=== PATIENT | male | born 1950 | race Caucasian/White ===

== ENCOUNTER 2018-01-02 20:22 | Emergency (ER) | payer OTHER ==
[2018-01-02] MEDS ORDERED: DERMABOND SKIN ADHESIVE TOP ONE (21:19)
--- NOTE | 2018-01-02 21:23 | RAD REPORT ---
EXAM DESCRIPTION: CT - CTHCSPWOC - 01/02/2018 9:02 pm CLINICAL HISTORY: Trauma, head and neck injury. SMASH INJURY COMPARISON: No comparisons TECHNIQUE: Axial 5 mm thick images of the head were obtained. Axial 2 mm thick images of the cervical spine were obtained with sagittal and coronal reconstruction images generated and reviewed. All CT scans are performed using dose optimization technique as appropriate and may include automated exposure control or mA/KV adjustment according to patient size. FINDINGS: CT HEAD WITHOUT CONTRAST: No acute hemorrhage, hydrocephalus or extra-axial collection is identified.Moderate brain atrophy.No areas of brain edema or midline shift. Mild polypoid mucosal thickening is seen in both maxillary antra.The calvarium is intact. CT CERVICAL SPINE WITHOUT CONTRAST: No fracture or subluxation.Mild lower cervical degenerative changes.No prevertebral soft tissues swel ling is identified. IMPRESSION: No acute intracranial or cervical spine findings.
--- NOTE | 2018-01-02 22:01 | EDPHYS ---
Physician Documentation [facility] Name: Laith Tinajero Age: 67 yrs Sex: Male : 1950 Arrival Date: 01/02/2018 Time: 20:23 Bed 16 Private MD: Fernando Lucas T ED Physician Valente Torres HPI: 01/02 20:57 This 67 yrs old Male presents to ER via Ambulatory with complaints of Fall snw Injury. 20:57 Details of fall: The patient fell from an upright position, while walking. Onset: The snw symptoms/episode began/occurred suddenly, just prior to arrival. Associated injuries: The patient sustained injury to the head, laceration, 2.5 cm(s), of the left side of forehead. Severity of symptoms: At their worst the symptoms were moderate. The patient has experienced a previous episode. The patient has not recently seen a physician. pt and family state this happens on occasion with his medications. Historical: - Allergies: 20:37 TETRACYCLINES; tl3 - Home Meds: 20:37 gabapentin 100 mg oral cap 3 caps 3 times per day [Active]; tramadol 50 mg Oral tab tl3 [Active]; aspirin 325 mg Oral tab 1 tab once daily [Active]; diazepam 5 mg oral tab 0.5 tab for Muscle Spasm [Active]; - PMHx: 20:37 Fibromyalgia; tl3 - Immunization history:: Adult Immunizations up to date, Last tetanus immunization: < 5 years ago. - Social history:: Smoking status: Patient/guardian denies using tobacco, never smoked. - Ebola Screening: : No symptoms or risks identified at this time. ROS: 20:57 Constitutional: Negative for fever, chills, and weight loss, Eyes: Negative for injury, snw pain, redness, and discharge, ENT: Negative for injury, pain, and discharge, Neck: Negative for injury, pain, and swelling, Cardiovascular: Negative for chest pain, palpitations, and edema, Respiratory: Negative for shortness of breath, cough, wheezing, and pleuritic chest pain, Abdomen/GI: Negative for abdominal pain, nausea, vomiting, diarrhea, and constipation, Back: Negative for injury and pain, : Negative for injury, bleeding, discharge, and swelling, MS/Extremity: Negative for injury and deformity, Skin: Negative for injury, rash, and discoloration. 20:57 Neuro: Positive for dizziness, fall, struck front of head on table . Exam: 20:51 Constitutional: This is a well developed, well nourished patient who is awake, alert, snw and in no acute distress. Head/Face: Normocephalic, atraumatic. 20:51 Constitutional: This is a well developed, well nourished patient who is awake, alert, and in no acute distress. + ETOH Head/Face: Normocephalic, traumatic, star like laceration above left eyebrow, superficial skin avulsion to bridge of nose ENT: Nares patent. No nasal discharge, no septal abnormalities noted. Tympanic membranes are normal and external auditory canals are clear. Oropharynx with no redness, swelling, or masses, exudates, or evidence of obstruction, uvula midline. Mucous membranes moist. Neck: Trachea midline, no thyromegaly or masses palpated, and no cervical lymphadenopathy. Supple, full range of motion without nuchal rigidity, or vertebral point tenderness. No Meningismus. Chest/axilla: Normal chest wall appearance and motion. Nontender with no deformity. No lesions are appreciated. Cardiovascular: Regular rate and rhythm with a normal S1 and S2. No gallops, murmurs, or rubs. Normal PMI, no JVD. No pulse deficits. Respiratory: Lungs have equal breath sounds bilaterally, clear to auscultation and percussion. No rales, rhonchi or wheezes noted. No increased work of breathing, no retractions or nasal flaring. Abdomen/GI: Soft, non-tender, with normal bowel sounds. No distension or tympany. No guarding or rebound. No evidence of tenderness throughout. Back: No spinal tenderness. No costovertebral tenderness. Full range of motion. MS/ Extremity: Pulses equal, no cyanosis. Neurovascular intact. Full, normal range of motion. 20:51 Eyes: Pupils: equal, right pupil is approximately 5 mm(s), left pupil is approximately 5 mm(s), Extraocular movements: no acute changes, Conjunctiva: normal, Corneas: are normal. 20:51 Neuro: Orientation: is normal, appropriate for stated age, Mentation: is normal, Cerebellar function: normal finger to nose testing, seizure activity, is not displayed by the patient, mildly slurred speech, pt and spouse state this happens on occasion when he takes gabapentin. Vital Signs: 20:37 BP 112 / 65; Pulse 88; Resp 18; Temp 97.6; Pulse Ox 99% ; Weight 88.45 kg; Height 5 ft. tl3 11 in. (180.34 cm); 21:45 BP 121 / 72; Pulse 72; Resp 18 S; Pulse Ox 96% on R/A; cc3 22:00 BP 126 / 74; Pulse 88; Resp 18 S; Pulse Ox 96% on R/A; cc3 20:37 Body Mass Index 27.20 (88.45 kg, 180.34 cm) tl3 NIH Stroke Scale Scores: 20:51 NIHSS Score: 1 snw Laceration: 22:00 Wound Repair of subcutaneous laceration to left side of forehead. Distal snw neuro/vascular/tendon intact. Skin closed with thin layer Adhesive skin closure using Dermabond. Skin closed with thin layer Adhesive skin closure using simple sutures and sterile technique. MDM: 20:43 Patient medically screened. snw 21:58 Data reviewed: vital signs, nurses notes. Data interpreted: Pulse oximetry: on room air snw is 99 %. Interpretation: normal. Counseling: I had a detailed discussion with the patient and/or guardian regarding: the historical points, exam findings, and any diagnostic results supporting the discharge/admit diagnosis, radiology results, the need for outpatient follow up, to return to the emergency department if symptoms worsen or persist or if there are any questions or concerns that arise at home. Special discussion: Based on the patient's history, exam and DX evaluation, there is no indication for emergent intervention or inpatient TX. It is understood by the patient/guardian that if the SXs persist or worsen they need to return immediately for re-evaluation. Based on the history and exam findings, there is no indication for further emergent testing or inpatient evaluation. I discussed with the patient/guardian the need to see the primary care provider for further evaluation of the symptoms. 01/02 20:49 Order name: CT Head C Spine; Complete Time: 21:29 snw 01/02 20:49 Order name: Wound Care; Complete Time: 21:36 snw 01/02 20:49 Order name: Dermabond; Complete Time: 21:36 snw Administered Medications: No medications were administered Disposition: 01/03 06:07 Co-signature as Attending Physician, Valente Brian MD I agree with the assessment and terrence plan of care. Disposition: 01/02/18 21:59 Discharged to Home. Impression: Fall on same level, unspecified, Unspecified injury of head, Laceration without foreign body of unspecified part of head. - Condition is Stable. - Discharge Instructions: Tissue Adhesive Wound Care, Head Injury, Adult, Facial Laceration. - Work release form, Medication Reconciliation Form, Thank You Letter, Antibiotic Education, Prescription Opioid Use form. - Follow up: Fernando Lucas MD; When: 2 - 3 days; Reason: Recheck today's complaints, Continuance of care, Re-evaluation by your physician. Follow up: Emergency Department; When: As needed; Reason: Worsening of condition. NIH Stroke Scale - NIH Stroke Score Date: 01/02/2018 Time: 20:51 Total Score = 1 1a. Level of Consciousness (LOC) - 0(Alert) 1b. Level of Consciousness (LOC) (Year \T\ Age) - 0(Both) 1c. LOC Commands (Open \T\ Closes Eyes/Catastrophe Claims Supervisor) - 0(Both) 2. Best Gaze (Lateral Gaze Paresis) - 0(Normal) 3. Visual Field Loss - 0(No visual loss) 4. Facial Palsy - 0(Normal) 5a. Left Arm: Motor (10-second hold) - 0(No drift) 5b. Right Arm: Motor (10-second hold) - 0(No drift) 6a. Left Leg: Motor (5-second hold - always test supine) - 0(No drift) 6b. Right Leg: Motor (5-second hold - always test supine) - 0(No drift) 7. Limb Ataxia (finger/nose \T\ heel/rodriguez - test with eyes open) - 0(Absent) 8. Sensory Loss (pinprick arms/legs/face) - 0(Normal) 9. Best Language: Aphasia (description/naming/reading) - 0(No aphasia) 10. Dysarthria (speech clarity - read or repeat words) - 1(Mild to Moderate) 11. Extinction and Inattention (visual/tactile/auditory/spatial/personal) - 0(No abnormality) Initials: snw Signatures: Dispatcher [employer] Valente Vila MD MD cha Therrien, Shelly, CLOUD SYSTEMS ADMINISTRATOR-C CLOUD SYSTEMS ADMINISTRATOR-Csnw [place], RN RN tl3 Jazmine White cc3 Corrections: (The following items were deleted from the chart) 01/02 20:59 20:51 Constitutional: This is a well developed, well nourished patient who is snw awake, alert, and in no acute distress. Head/Face: Normocephalic, atraumatic. snw 20:59 20:51 Head/Face: Normocephalic, traumatic, star like laceration above left snw eyebrow, superficial skin avulsion to bridge of nose ENT: Nares patent. No nasal discharge, no septal abnormalities noted. Tympanic membranes are normal and external auditory canals are clear. Oropharynx with no redness, swelling, or masses, exudates, or evidence of obstruction, uvula midline. Mucous membranes moist. Neck: Trachea midline, no thyromegaly or masses palpated, and no cervical lymphadenopathy. Supple, full range of motion without nuchal rigidity, or vertebral point tenderness. No Meningismus. Chest/axilla: Normal chest wall appearance and motion. Nontender with no deformity. No lesions are appreciated. Cardiovascular: Regular rate and rhythm with a normal S1 and S2. No gallops, murmurs, or rubs. Normal PMI, no JVD. No pulse deficits. Respiratory: Lungs have equal breath sounds bilaterally, clear to auscultation and percussion. No rales, rhonchi or wheezes noted. No increased work of breathing, no retractions or nasal flaring. Abdomen/GI: Soft, non-tender, with normal bowel sounds. No distension or tympany. No guarding or rebound. No evidence of tenderness throughout. Back: No spinal tenderness. No costovertebral tenderness. Full range of motion. MS/ Extremity: Pulses equal, no cyanosis. Neurovascular intact. Full, normal range of motion. snw 22:14 21:59 01/02/2018 21:59 Discharged to Home. Impression: Fall on same level, cc3 unspecified; Unspecified injury of head; Laceration without foreign body of unspecified part of head. Condition is Stable. Forms are Medication Reconciliation Form, Thank You Letter, Antibiotic Education, Prescription Opioid Use. Follow up: Fernando Lucas; When: 2 - 3 days; Reason: Recheck today's complaints, Continuance of care, Re-evaluation by your physician. Follow up: Emergency Department; When: As needed; Reason: Worsening of condition. snw
--- NOTE | 2018-01-02 22:01 | ER ---
Nurse's Notes [facility] Name: Laith Tinajero Age: 67 yrs Sex: Male : 1950 Arrival Date: 01/02/2018 Time: 20:23 Bed 16 Private MD: Fernando Lucas T Diagnosis: Fall on same level, unspecified;Unspecified injury of head;Laceration without foreign body of unspecified part of head Presentation: 01/02 20:33 Presenting complaint: Patient states: pt fell at [employer], hitting left forehead on tl3 a table, laceration to forhead. Transition of care: patient was not received from another setting of care. Onset of symptoms was January 02, 2018 at 20:34. Risk Assessment: Do you want to hurt yourself or someone else? Patient reports no desire to harm self or others. Initial Sepsis Screen: Does the patient meet any 2 criteria? No. Patient's initial sepsis screen is negative. Does the patient have a suspected source of infection? No. Patient's initial sepsis screen is negative. Care prior to arrival: None. 20:33 Method Of Arrival: Ambulatory tl3 20:33 Acuity: MANAN 3 tl3 Triage Assessment: 20:37 General: Appears uncomfortable, Behavior is calm, cooperative, appropriate for age, tl3 Smells of alcohol. Pain: Complains of pain in left side of forehead Pain currently is 2 out of 10 on a pain scale. Historical: - Allergies: 20:37 TETRACYCLINES; tl3 - Home Meds: 20:37 gabapentin 100 mg oral cap 3 caps 3 times per day [Active]; tramadol 50 mg Oral tab tl3 [Active]; aspirin 325 mg Oral tab 1 tab once daily [Active]; diazepam 5 mg oral tab 0.5 tab for Muscle Spasm [Active]; - PMHx: 20:37 Fibromyalgia; tl3 - Immunization history:: Adult Immunizations up to date, Last tetanus immunization: < 5 years ago. - Social history:: Smoking status: Patient/guardian denies using tobacco, never smoked. - Ebola Screening: : No symptoms or risks identified at this time. Screenin:45 Abuse screen: Denies threats or abuse. Denies injuries from another. Nutritional cc3 screening: No deficits noted. Tuberculosis screening: No symptoms or risk factors identified. Fall Risk Ambulatory Aid- None/Bed Rest/Nurse Assist (0 pts). Gait- Weak (10 pts.). Mental Status- Oriented to own ability (0 pts). Assessment: 20:45 General: Appears in no apparent distress. uncomfortable, Behavior is calm, cooperative, cc3 appropriate for age. Pain: Complains of pain in left side of forehead. Neuro: Level of Consciousness is awake, alert, obeys commands, Oriented to person, place, time, situation, Appropriate for age. Cardiovascular: Denies chest pain. Respiratory: Airway is patent Respiratory effort is even, unlabored, Respiratory pattern is regular, symmetrical. GI: Abdomen is round non-distended. : No signs and/or symptoms were reported regarding the genitourinary system. EENT: No signs and/or symptoms were reported regarding the EENT system. Derm: Wound noted left side of forehead Wound is lacerated wound sustained from fall. Musculoskeletal: Circulation, motion, and sensation intact. Range of motion: intact in all extremities. Injury Description: Laceration sustained to left side of forehead is jagged, superficial, bleeding moderately, a small amount of bleeding noted at this time. A dressing was applied. 21:36 Reassessment: Patient appears in no apparent distress at this time. Patient and/or cc3 family updated on plan of care and expected duration. Pain level reassessed. Patient is alert, oriented x 3, equal unlabored respirations, skin warm/dry/pink. Wound cleaning, dermabond application and dressing done. 22:10 Reassessment: Patient appears in no apparent distress at this time. Patient and/or cc3 family updated on plan of care and expected duration. Pain level reassessed. Patient is alert, oriented x 3, equal unlabored respirations, skin warm/dry/pink. MARE Light discharged home the patient, no prescription given. No IV cannula in situ. Patient left ER vitally stable by wheelchair with his . Vital Signs: 20:37 BP 112 / 65; Pulse 88; Resp 18; Temp 97.6; Pulse Ox 99% ; Weight 88.45 kg; Height 5 ft. tl3 11 in. (180.34 cm); 21:45 BP 121 / 72; Pulse 72; Resp 18 S; Pulse Ox 96% on R/A; cc3 22:00 BP 126 / 74; Pulse 88; Resp 18 S; Pulse Ox 96% on R/A; cc3 20:37 Body Mass Index 27.20 (88.45 kg, 180.34 cm) tl3 NIH Stroke Scale Scores: 20:51 NIHSS Score: 1 snw ED Course: 20:23 Patient arrived in ED. am2 20:23 Fernando Lucas MD is Private Physician. am2 20:34 Triage completed. tl3 20:37 Arm band placed on right wrist. tl3 20:43 Nade[facility] Bergman [facility]-C [facility]. snw 20:43 Valente Torres MD is Attending Physician. snw 20:45 Patient has correct armband on for positive identification. Bed in low position. Call cc3 light in reach. Side rails up X 1. Pulse ox on. NIBP on. 20:[address] via wheelchair. vm2 21:00 CT completed. Patient tolerated procedure well. Patient moved back from CT. nj 21:02 CT Head C Spine In Process Unspecified. EDMS 21:05 Jazmine White is Primary Nurse. cc3 21:58 Fernando Lucas MD is Referral Physician. snw 22:10 No provider procedures requiring assistance completed. Patient did not have IV access cc3 during this emergency room visit. Administered Medications: No medications were administered Outcome: 21:59 Discharge ordered by . snw 22:10 Discharged to home via wheelchair, with family. cc3 22:10 Condition: stable 22:10 Discharge instructions given to patient, family, Instructed on discharge instructions, follow up and referral plans. Demonstrated understanding of instructions, follow-up care. 22:14 Patient left the ED. cc3 NIH Stroke Scale - NIH Stroke Score Date: 01/02/2018 Time: 20:51 Total Score = 1 1a. Level of Consciousness (LOC) - 0(Alert) 1b. Level of Consciousness (LOC) (Year \T\ Age) - 0(Both) 1c. LOC Commands (Open \T\ Closes Eyes/New Car Inspector) - 0(Both) 2. Best Gaze (Lateral Gaze Paresis) - 0(Normal) 3. Visual Field Loss - 0(No visual loss) 4. Facial Palsy - 0(Normal) 5a. Left Arm: Motor (10-second hold) - 0(No drift) 5b. Right Arm: Motor (10-second hold) - 0(No drift) 6a. Left Leg: Motor (5-second hold - always test supine) - 0(No drift) 6b. Right Leg: Motor (5-second hold - always test supine) - 0(No drift) 7. Limb Ataxia (finger/nose \T\ heel/rodriguez - test with eyes open) - 0(Absent) 8. Sensory Loss (pinprick arms/legs/face) - 0(Normal) 9. Best Language: Aphasia (description/naming/reading) - 0(No aphasia) 10. Dysarthria (speech clarity - read or repeat words) - 1(Mild to Moderate) 11. Extinction and Inattention (visual/tactile/auditory/spatial/personal) - 0(No abnormality) Initials: snw Signatures: Dispatcher [employer] EDNadege Zarco, COFFEE FARMER-C COFFEE FARMER-Csnw Sj Maier Amanda am2 Pamela Urias2 [place], RN RN tl3 Jazmine White cc3
== END 2018-01-02 22:14 | disposition home or self-care (01) ==
LOC: ER 20:22
PROC: 0JQ10ZZ Repair Face Subcutaneous Tissue and Fascia, Open Approach (ICD-10-PCS; principal; 2018-01-02)
DX: S01.81XA Laceration without foreign body of other part of head, initial encounter (principal); S09.90XA Unspecified injury of head, initial encounter; W18.30XA Fall on same level, unspecified, initial encounter; Y93.01 Activity, walking, marching and hiking; M79.7 Fibromyalgia; Z79.899 Other long term (current) drug therapy
CPT/HCPCS: 70450; 72125; 99284

== ENCOUNTER 2023-11-14 14:27 | Emergency (ER) | payer OTHER ==
[2023-11-14 15:13] LABS: Absolute Eosinophils 0.1 K/uL (0-0.5); Absolute Lymphocytes (CBC) 0.6 K/uL (0.7-4.9); Absolute Monocytes 0.4 K/uL (0.1-1.3); Absolute Neutrophil 4.3 K/uL (1.8-8.0); Basophils % 0.7 % (0-1.3); Eosinophils % 1.9 % (0-4.4); Hematocrit 43.3 % (39.6-49.0); Hemoglobin 14.4 g/dL (13.6-17.9); Lymphocytes % 10.9 % (15.3-44.8); MCH 29.8 pg (27.0-35.0); MCHC 33.3 g/dL (32.0-36.0); MCV 89.6 fL (80-100); Monocytes % 7.8 % (3.3-12.3); Neutrophils % 78.7 % (41.7-73.7); Platelets 226 thou/uL (152-406); RBC Red Blood Cell Count 4.83 M/uL (4.33-5.43); Red Cell Distribution Width 13.8 % (12.1-15.2)
[2023-11-14 15:14] LABS: PT Prothrombin Time 11.5 SECONDS (9.4-12.5); Protime INR 1.03
[2023-11-14 15:25] LABS: Anion Gap 8.6 mEq/L (5.0-15.0); Potassium 3.6 mEq/L (3.5-5.1); Troponin High Sensitivity 4.9 pg/mL (<58.9)
--- NOTE | 2023-11-14 15:53 | RAD REPORT ---
EXAMINATION: ONE VIEW CHEST XR CLINICAL INDICATION: Male, 73 years old. [facility] SO[facility] Bed Name: 6 TECHNIQUE: Frontal chest projection is submitted. Examination is limited by patient positioning and t echnique. COMPARISON: 08/04/2023 and 03/10/2021 FINDINGS: The lungs are well inflated and clear. No pneumothorax or sizable effusion. The heart is normal in s ize. IMPRESSION: No acute intrathoracic abnormalities.
--- NOTE | 2023-11-14 16:12 | EDPHYS ---
Physician Documentation [facility] Name: Laith Tinajero Age: 73 yrs Sex: Male : 1950 Arrival Date: 11/14/2023 Time: 14:27 Bed 6 Private MD: ED Physician Ladonna Rebolledo HPI: 11/13 16:12 This 73 yrs old Male presents to ER via Ambulatory with complaints of High gb1 Blood Pressure, high heart rate, Anxiety. Historical: - Allergies: 14:40 TETRACYCLINES; ll1 - PMHx: 14:40 Fibromyalgia; ll1 - PSHx: 14:40 None; ll1 - Immunization history:: Adult Immunizations up to date. - Social history:: Smoking status: Patient denies any tobacco usage or history of. Exam: 16:12 Constitutional: This is a well developed, well nourished patient who is awake, alert, gb1 and in no acute distress. Head/Face: Normocephalic, atraumatic. Eyes: Pupils equal round and reactive to light, extra-ocular motions intact. Lids and lashes normal. Conjunctiva and sclera are non-icteric and not injected. Cornea within normal limits. Periorbital areas with no swelling, redness, or edema. ENT: Nares patent. No nasal discharge, no septal abnormalities noted. Tympanic membranes are normal and external auditory canals are clear. Oropharynx with no redness, swelling, or masses, exudates, or evidence of obstruction, uvula midline. Mucous membranes moist. Neck: Trachea midline, no thyromegaly or masses palpated, and no cervical lymphadenopathy. Supple, full range of motion without nuchal rigidity, or vertebral point tenderness. No Meningismus. Chest/axilla: Normal chest wall appearance and motion. Nontender with no deformity. No lesions are appreciated. Cardiovascular: Regular rate and rhythm with a normal S1 and S2. No gallops, murmurs, or rubs. Normal PMI, no JVD. No pulse deficits. Respiratory: Lungs have equal breath sounds bilaterally, clear to auscultation and percussion. No rales, rhonchi or wheezes noted. No increased work of breathing, no retractions or nasal flaring. Abdomen/GI: Soft, non-tender, with normal bowel sounds. No distension or tympany. No guarding or rebound. No evidence of tenderness throughout. Back: No spinal tenderness. No costovertebral tenderness. Full range of motion. Skin: Warm, dry with normal turgor. Normal color with no rashes, no lesions, and no evidence of cellulitis. MS/ Extremity: Pulses equal, no cyanosis. Neurovascular intact. Full, normal range of motion. Psych: Awake, alert, with orientation to person, place and time. Pt appears agitated and anxious. Vital Signs: 14:38 BP 153 / 84; Pulse 92; Resp 17; Temp 97.2; Pulse Ox 99% on R/A; Weight 86.64 kg; Height ll1 5 ft. 11 in. ; Pain 0/10; 15:12 BP 144 / 77; Pulse 88; Resp 18; Pulse Ox 97% on R/A; ph 14:38 Body Mass Index 26.64 (86.64 kg, 180.34 cm) ll1 14:38 Pain Scale: Adult ll1 MDM: 14:36 Patient medically screened. gb1 16:12 Differential diagnosis: Benzodiazepine withdrawal, drug-seeking behavior and anxiety gb1 disorder. Data reviewed: vital signs, nurses notes. ED course: 73-year-old male with history of elevated blood pressure and anxiety as he has been recently weaned off of his Valium 5 mg daily. Patient states he was taking that for anxiety but had a fall in 2018 secondary to alcohol intoxication with a laceration that was repaired here in the emergency department, and since then patient has been feeling more anxious on a more regular basis the longer he is gone without the benzodiazepine. Patient states that this time that he is going through an acute stressor and wants the medication refilled by mouth. Patient's primary care doctor is Dr. Lucas reviewed the [facility] aware website for his last prescription for 30 days was prescribed on October 22, 2023. Patient appears very agitated with an intentional tremor at bedside but a nonfocal neuroexam. Patient became agitated when I [facility] aware prescribing habits of multiple prescribers from the emergency department. He stated that both I want what I want and I need my benzos refilled now". Patient has a appointment scheduled with neurology as an outpatient to evaluate. Also consider depression, anxiety or dementia age-related onset. I do think there is an element of drug-seeking behavior at this time and I will not prescribe any benzodiazepine for discharge.. 11/13 14:34 Order name: Basic Metabolic Panel; Complete Time: 15:30 11/13 14:34 Order name: CBC with Diff; Complete Time: 15:30 11/13 14:34 Order name: NT PRO-BNP; Complete Time: 15:30 11/13 14:34 Order name: PT-INR; Complete Time: 15:30 11/13 14:34 Order name: Troponin HS; Complete Time: 15:30 11/13 14:34 Order name: XRAY Chest (1 view); Complete Time: 15:54 11/13 14:34 Order name: EKG; Complete Time: 14:35 11/13 14:34 Order name: Cardiac monitoring; Complete Time: 15:09 11/13 14:34 Order name: EKG - Nurse/Tech; Complete Time: 15:09 11/13 14:34 Order name: IV Saline Lock; Complete Time: 15:09 11/13 14:34 Order name: Labs collected and sent; Complete Time: 15:09 11/13 14:34 Order name: O2 Per Protocol; Complete Time: 15:09 11/13 14:34 Order name: O2 Sat Monitoring; Complete Time: 15:09 gb Administered Medications: No medications were administered Disposition Summary: 11/14/23 16:12 Discharge Ordered Notes: Location: Home gb1 Condition: Fair gb1 Diagnosis - Underdosing of benzodiazepines gb1 Followup: gb1 - With: Private Physician - When: - Reason: Re-evaluation by your physician Discharge Instructions: - Discharge Summary Sheet gb1 - Benzodiazepine Withdrawal gb1 Forms: - Medication Reconciliation Form gb1 - Antibiotic Education gb1 - Prescription Opioid Use gb1 - Patient Portal Instructions gb1 - Leadership Thank You Letter gb1 Signatures: Dispatcher [employer] EDMS Allen Keating RN RN ll1 Ladonna Rebolledo MD MD gb1 Corrections: (The following items were deleted from the chart) 14:35 14:34 BASIC METABOLIC PANEL+C.LAB.BRZ ordered. EDMS EDMS 14:35 14:34 CBC+H.LAB.BRZ ordered. EDMS EDMS 14:35 14:34 PROBNP+C.LAB.BRZ ordered. EDMS EDMS 14:35 14:34 PROTIME (+INR)+COAG.LAB.BRZ ordered. EDMS EDMS 14:35 14:34 Troponin High Sensitivity+C.LAB.BRZ ordered. EDMS EDMS
--- NOTE | 2023-11-14 16:12 | ER ---
Nurse's Notes [facility] Name: Laith Tinajero Age: 73 yrs Sex: Male : 1950 Arrival Date: 11/14/2023 Time: 14:27 Bed 6 Private MD: Diagnosis: Underdosing of benzodiazepines Presentation: 11/13 14:38 Chief complaint: Patient states: BP 150/90, HR 110 for the past 4 days. Cant sleep well ll1 and "having panic attacks" also. Taking medications as prescribed. His doctor took him off diazepam that he had been taking for years. Coronavirus screen: Client denies travel out of the [place] in the last 14 days. At this time, the client does not indicate any symptoms associated with coronavirus-19. Ebola Screen: Patient denies travel to an Ebola-affected area in the 21 days before illness onset. Initial Sepsis Screen: Does the patient meet any 2 criteria? No. Patient's initial sepsis screen is negative. Does the patient have a suspected source of infection? No. Patient's initial sepsis screen is negative. Risk Assessment: Do you want to hurt yourself or someone else? Patient reports no desire to harm self or others. Onset of symptoms was November 11, 2023. 14:38 Method Of Arrival: Ambulatory ll1 14:38 Acuity: MANAN 3 ll1 Triage Assessment: 14:41 General: Appears uncomfortable, Behavior is cooperative, appropriate for age, anxious. ll1 Pain: Denies pain. Neuro: Reports cant sleep well, and panic attacks. Cardiovascular: Reports elevated BP and pulse for 4 days. Historical: - Allergies: 14:40 TETRACYCLINES; ll1 - PMHx: 14:40 Fibromyalgia; ll1 - PSHx: 14:40 None; ll1 - Immunization history:: Adult Immunizations up to date. - Social history:: Smoking status: Patient denies any tobacco usage or history of. Screenin:10 [facility] ED Fall Risk Assessment (Adult) History of falling in the last 3 months, ph including since admission No falls in past 3 months (0 pts) Confusion or Disorientation No (0 pts) Intoxicated or Sedated No (0 pts) Impaired Gait No (0 pts) Mobility Assist Device Used No (0 pt) Altered Elimination No (0 pt) Score/Fall Risk Level 0 - 2 = Low Risk Oriented to surroundings, Maintained a safe environment, Hourly rounding (assess needs \\T\\ fall precautionary measures) done. Abuse screen: Denies threats or abuse. Denies injuries from another. Nutritional screening: No deficits noted. Tuberculosis screening: No symptoms or risk factors identified. Assessment: 15:11 General: Appears in no apparent distress. comfortable, well groomed, Behavior is calm, ph cooperative, appropriate for age. Pain: Denies pain. Neuro: Level of Consciousness is awake, alert, obeys commands, Oriented to person, place, time, situation. Cardiovascular: Capillary refill < 3 seconds in bilateral fingers Patient's skin is warm and dry. Rhythm is regular. Respiratory: Airway is patent Respiratory effort is even, labored, Respiratory pattern is regular, symmetrical. Derm: Skin is pink, warm \\T\\ dry. Vital Signs: 14:38 BP 153 / 84; Pulse 92; Resp 17; Temp 97.2; Pulse Ox 99% on R/A; Weight 86.64 kg; Height ll1 5 ft. 11 in. ; Pain 0/10; 15:12 BP 144 / 77; Pulse 88; Resp 18; Pulse Ox 97% on R/A; ph 14:38 Body Mass Index 26.64 (86.64 kg, 180.34 cm) ll1 14:38 Pain Scale: Adult ll1 ED Course: 14:30 Patient arrived in ED. im 14:33 Ladonna Rebolledo MD is Attending Physician. gb1 14:38 Edna Monge, RN is Primary Nurse. ph 14:38 Arm band placed on Patient placed in an exam room, on a stretcher. ll1 14:40 Triage completed. ll1 14:49 XRAY Chest (1 view) In Process Unspecified. EDMS 15:09 Basic Metabolic Panel Sent. ph 15:09 CBC with Diff Sent. ph 15:09 NT PRO-BNP Sent. ph 15:09 PT-INR Sent. ph 15:10 Troponin HS Sent. ph 15:10 Initial lab(s) drawn, by me, sent to lab. EKG done, by ED staff, reviewed by Edna Monge RN. Inserted saline lock: 20 gauge in right antecubital area, using aseptic technique. Blood collected. Flushed with 10 mL NS. 15:11 Patient has correct armband on for positive identification. Bed in low position. Call ph light in reach. Side rails up X 1. Client placed on continuous cardiac and pulse oximetry monitoring. NIBP monitoring applied. hospital monitor on. Door closed. Noise minimized. Warm blanket given. Administered Medications: No medications were administered Medication: 15:10 VIS not applicable for this client. ph Outcome: 16:12 Discharge ordered by gb1 16:53 Patient left the ED. ph Signatures: Dispatcher [employer] EDEdna Owens RN RN ph Lewis, Lynsay, RN RN ll1 Yvette Osorio Gina, MD MD gb1 Corrections: (The following items were deleted from the chart) 14:41 14:38 Chief complaint: Patient states: BP 150/90, HR 110 for the past 4 days. Cant ll1 sleep well and "having panic attacks" also. Taking medications as prescribed. ll1
[2023-11-14 17:37] VITALS: TEMP 97.2
[2023-11-14 17:39] VITALS: BP 144/77; O2SAT 97
--- NOTE | 2023-11-15 16:59 | EKG ---
Test Date: 2023-11-14 Test Time: 14:52:30 Lead Technical Architect: PH MEASUREMENT RESULTS: Intervals: Rate: 91 UT: 166 QRSD: 110 QT: 374 QTc: 460 [place]: P: 77 UT: 166 QRS: -55 T: 58 INTERPRETIVE STATEMENTS: Normal sinus rhythm Left axis deviation Cannot rule out Inferior infarct, age undetermined Abnormal ECG No previous ECG available for comparison Electronically Signed On 11-15-23 16:55:07 CDT by Stew Pompa
== END 2023-11-14 16:53 | disposition home or self-care (01) ==
LOC: ER 14:27
DX: F41.9 Anxiety disorder, unspecified (principal); T42.4X6A Underdosing of benzodiazepines, initial encounter
CPT/HCPCS: 36415; 71045; 80048; 83880; 84484; 85025; 85610; 93005; 99284